=== PATIENT | female | born 1990 | race African-American/Black ===

== ENCOUNTER 2021-12-30 17:34 | Observation (INO) | payer SELFPAY ==
[~2021-12-30 17:34] MED LIST: Iopamidol-370 76% 500 ML 1 ML ONE
[2021-12-30 18:25] LABS: #Basophils 0.1 thou/uL (0.0-0.2); #Eosinphils 0.2 thou/uL (0.0-0.7); #Lymphocytes 2.1 thou/uL (1.20-3.40); #Monocytes 0.6 thou/uL (0.11-0.59); #Neutrophils 3.8 thou/uL (1.40-6.50); %Basophils 0.9 % (0.0-1.0); %Eosinophils 2.3 % (0.0-10.0); %Lymphocytes 31.4 % (21.0-51.0); %Neutrophils 56.5 % (42.0-75.0); Mean Corpuscular HGB CONC 32.6 g/dL (32.0-36.0); Mean Corpuscular Hemoglobin 29.5 pg (27.0-31.0); Mean Corpuscular Volume 90.5 fL (78.0-98.0); Mean Platelet Volume 8.3 fL (7.4-10.4); Platelet Count 233 thou/uL (130-400); RBC Distribution Width 14.4 % (11.5-14.5); Red Blood Cell (RBC) Count 4.42 mill/uL (4.20-5.40); White Blood Cell (WBC) Count 6.6 thou/uL (4.8-10.8)
[2021-12-30 18:42] LABS: ALT (SGPT) 26 U/L (8-55); AST (SGOT) 20 U/L (5-34); Albumin 3.5 g/dL (3.5-5.0); Alkaline Phosphatase 79 U/L (40-110); Anion Gap 12 mmol/L (10-20); BUN (Urea Nitrogen) 6 mg/dL (7.0-18.7); Bilirubin, Total 0.3 mg/dL (0.2-1.2); Calc. Creatinine Clearance 0 mL/min (70-130); Carbon Dioxide 25 mmol/L (22-29); Chloride 107 mmol/L (98-107); Estimated GFR 98; Globulin 3.6 g/dL (2.4-3.5); Glucose 78 mg/dL (70-105); Magnesium 1.6 mg/dL (1.6-2.6); Potassium 3.5 mmol/L (3.5-5.1); Protein, Total 7.1 g/dL (6.0-8.3); Sodium 140 mmol/L (136-145)
[2021-12-30 18:44] LABS: BHCG - Serum Negative (NEGATIVE); Pregs Control Background? CLEAR/WHITE (CLR/WHITE); Pregs Control Bar Appear? YES (CONTROL BAR)
[2021-12-30] MEDS ORDERED: Enoxaparin Sodium 60 MG/0.6 ML SYRINGE ONE (21:24)
[2021-12-30] MEDS ORDERED: Enoxaparin Sodium 100 MG/ML SYRINGE ONE (21:24)
[2021-12-30 22:09] LABS: Troponin I Less than 0.010 ng/mL (< 0.028)
[2021-12-30] MEDS ORDERED: Acetaminophen 325 MG TAB PO PRN (22:09)
[2021-12-30] MEDS ORDERED: Ibuprofen 600 MG TAB PO PRN (22:12)
[2021-12-30] MEDS ORDERED: Nicotine 14 MG PATCH TD SCH (22:15)
[2021-12-30 22:16] LABS: SARS-CoV-2 NAA Rapid Test Not Detected (NotDetected)
[2021-12-30] MEDS ORDERED: Acetaminophen 325 MG TAB ONE (22:44)
[2021-12-30 23:38] VITALS: BMI 58.9
[2021-12-31 01:27] LABS: Troponin I Less than 0.010 ng/mL (< 0.028)
[2021-12-31 08:31] VITALS: BP 119/74; TEMP 98.8
[2021-12-31] MEDS ORDERED: Oseltamivir 75 MG CAP PO SCH (09:00)
== END 2021-12-31 11:43 | disposition home or self-care (01) ==
LOC: ERS 17:34 → T4-B 20:39
PROVIDERS: ADMIT Student in an Organized Health Care Education/Training Program; ATTEND Student in an Organized Health Care Education/Training Program
DX: J10.1 Influenza due to other identified influenza virus with other respiratory manifestations (principal); R79.1 Abnormal coagulation profile; F17.210 Nicotine dependence, cigarettes, uncomplicated; J45.909 Unspecified asthma, uncomplicated; E66.01 Morbid (severe) obesity due to excess calories; Z68.43 Body mass index [BMI] 50.0-59.9, adult; Z28.310 Unvaccinated for COVID-19; Z20.822 Contact with and (suspected) exposure to COVID-19
CPT/HCPCS: 36415; 71045; 71275; 80053; 83735; 84443; 84484; 84703; 85025; 85379; 93005; 94640; 96372; G0378; J1650; J7620; Q9967